=== PATIENT | female | born 1945 | race American Indian/Alaskan Native ===

== ENCOUNTER 2020-06-21 11:42 | Outpatient (REF) | payer MEDICARE, SELFPAY ==
[2020-06-21 14:24] LABS: Cholesterol 162 mg/dL; HDL Cholesterol 51 mg/dL; LDL Cholesterol Calculated 68 mg/dl; Triglycerides 219 mg/dL
[2020-06-21 14:35] LABS: Microalbum/Creatinine Ratio Ur 11.5 ug/mg cr
== END 2020-06-21 11:43 | disposition home or self-care (01) ==
LOC: HO.10HDL 11:42
PROVIDERS: Visit Provider Internal Medicine
DX: E11.9 Type 2 diabetes mellitus without complications (principal); I10 Essential (primary) hypertension
CPT/HCPCS: 36415; 80061; 82043

== ENCOUNTER 2020-12-24 11:40 | Outpatient (REF) | payer MEDICARE, SELFPAY ==
--- NOTE | ~2020-12-24 | MM_ITS ---
EXAMINATION: MM SCREENING DIGITAL BREAST TOMOSYNTHESIS, BILATERAL CLINICAL INFORMATION: Screening. Asymptomatic. The lifetime risk of breast cancer based on the Tyrer-Cuzick Model is 4.2%. COMPARISON: Mammography: August 08, 2018 and studies dating back to November 30, 2011 TECHNIQUE: Digital breast tomosynthesis is performed in both the craniocaudal and mediolateral oblique views along with computer-aided detection (CAD). Synthesized 2D images are generated from the tomosynthesis. FINDINGS: There are scattered areas of fibroglandular density (ACR BI-RADS breast composition Category b). There are no significant masses, abnormal calcifications, or other abnormalities. MM/MM tomosynthesis screening BI IMPRESSION: There are no significant changes from prior study. ASSESSMENT: BI-RADS 1: Negative RECOMMENDATION: Routine annual mammography screening. This patient's information was entered into a reminder system with a target due date for their next mammogram.
--- NOTE | ~2020-12-24 | MM_ITS ---
EXAMINATION: BONE DENSITOMETRY CLINICAL INDICATION: Asymptomatic menopausal state. COMPARISON: None (current study represents initial baseline exam). TECHNIQUE: Using a Opendisc DXA System (software version: 13.1) manufactured by [employer], dual-energy x-ray absorptiometry was performed of the spine and left hip. The images are of good technical quality. Summary results are attached. FINDINGS: AP SPINE L1-L3 (excluding L4): The data of L1-L4 has been changed to exclude the L4 vertebral body, because degenerative changes at this level may cause overestimation of lumbar spine density. BMD 1.318 g/cm2, Z-score 2.4, T-score 1.2, normal. LEFT FEMUR, NECK: BMD 0.833 g/cm2, Z-score 0.0, T-score -1.5, osteopenia. LEFT FEMUR, TOTAL: BMD 0.973 g/cm2, Z-score 0.9, T-score -0.3, normal. IDENTIFIED RISK FACTORS: Height loss, history of fracture (adult), menopause. HISTORY OF FRACTURE: Foot, clavicle. MEDICATIONS: Calcium supplements or multivitamin, vitamin D. MM/XR DEXA axial skeleton IMPRESSION: 1. DIAGNOSIS: Osteopenia based on the lowest T-score value of -1.5 in the femoral neck applying World Health Organization criteria. 2. 10-YEAR FRACTURE RISK PREDICTION, FRAX: Major osteoporotic fracture (clinical spine, forearm, hip or shoulder) 15.2%. Hip fracture 2.4%. 3. Treatment Recommendations: NOF guidelines recommend consideration for treatment in postmenopausal women and men age 50 and older presenting with the following: -A hip or vertebral (clinical or morphometric) fracture. -T-score less than or equal to -2.5 at the femoral neck or spine after appropriate evaluation to exclude secondary causes. -Low bone mass at the hip or spine and a 10-year fracture probability by FRAX of greater than or equal to 3% for hip fracture or greater than or equal to 20% for major osteoporotic fracture based on the [place] adapted WHO algorithm. 4. Other Recommendations: All treatment decisions require clinical judgment and consideration of individual patient factors, including patient preferences, comorbidities, previous drug use, risk factors not captured in the FRAX model (e.g. frailty, falls, vitamin D deficiency, increased bone turnover, interval significant decline in bone density) and possible under or overestimation of fracture risk by FRAX. Additional medical evaluation for secondary cause of low bone mineral density may be appropriate. FUTURE SCAN RECOMMENDATION: People with diagnosed cases of osteoporosis or at high risk for fracture should have regular bone mineral density tests. For patients eligible for Medicare, routine testing is allowed once every 2 years. The testing frequency can be increased to one year for patients who have rapidly progressing disease, those who are receiving or discontinuing medical therapy to restore bone mass, or have additional risk factors.
== END 2020-12-24 11:41 | disposition home or self-care (01) ==
LOC: HO.MAMMO 11:40
PROVIDERS: PCP Internal Medicine; Visit Provider Nurse Practitioner Family
DX: Z12.31 Encounter for screening mammogram for malignant neoplasm of breast (principal); Z13.820 Encounter for screening for osteoporosis; Z78.0 Asymptomatic menopausal state
CPT/HCPCS: 77063; 77067; 77080

== ENCOUNTER 2022-09-29 13:32 | Outpatient (AMB) | payer MEDICARE, SELFPAY ==
--- NOTE | 2022-09-29 13:34 | MHC.PC.OV ---
Vital Signs 09/29/22 13:37 Height 5 ft Weight 173 lb 4 oz BMI 33.8 BP 110/62 Blood Pressure Location Lt brachial Position Sitting Pulse 71 Pulse Source Pulse Oximeter Pulse Oximetry (%) 92 Oxygen Delivery Method Room Air Intake Visit Reasons: 3 month f/u Medications Intake Note: Patient is here to follow up on DM, HTN, COPD. 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: No Diesel Engine Engineer: Not Required per policy Accompanied by: Self / Same As Patient Allergies diphenhydramine [From Benadryl] Allergy (Unknown, Verified 09/29/22 13:37) redness Medication List - Last Reconciled 09/29/22 by Karl John MD albuterol sulfate 90 mcg/actuation (Ventolin HFA) 2 puffs inhalation Q4-6H PRN lisinopril 20 mg PO DAILY metformin 500 mg PO DAILY metoprolol succinate ER 50 mg PO BID simvastatin 20 mg PO BEDTIME Tobacco use date assessed: 09/29/22 Fall risk assessment: No Falls in past year Last assessed Fall Risk: 09/29/22 Dental Screening Dental Screen Date: 09/29/22 Did you have a dental visit in the last 12 months?: No Did you have a dental problem in the last 6 months where you did not have access to dental care?: No Was dental information given to patient?: No HPI 3 month f/u Medications HPI Details HTN on Rx; doing well; compliant [facility] Medical History (Updated 05/20/22 @ 14:04 by Karl John MD) Diabetes mellitus Hypertension Obesity Type 2 diabetes mellitus with obesity Surgical History History of ankle surgery History of appendectomy History of colonoscopy History of tonsillectomy and adenoidectomy History of tubal ligation Family History (Updated 09/29/22 @ 13:35 by MARYLOU Figueroa) Father Diabetes CHF (congestive heart failure) Pneumonia Mother Myocardial infarction Maternal Grandmother No problems noted. Paternal Grandmother Breast cancer Paternal Grandfather Cancer Social History Housing: House Alcohol intake: never Patient Tobacco Use Status: Former Tobacco user e-Cigarette/Vaping Use: Never Used Second Hand Smoke Exposure: No service: No Current occupational status: retired Cognitive needs: No Hearing needs: No Vision needs: Yes (glasses) Questionnaire Thrive Questionnaire Date Thrive assessed: 05/20/22 LATESHA-7 AMB Questionnaire LATESHA-7 Date LATESHA - 7 assessed: 05/20/22 Source: Developed by Drs. Chinmay Arguello, Flaca Burgos, Marco Valle and colleagues, with an educational ced from [employer]. Review of Systems Const Denies chills, Denies headache(s) and Denies weight loss ENT Denies headache(s) Card Denies chest pain, Denies syncope, Denies irregular heart rhythm and Denies dyspnea Resp Denies chest congestion, Denies cough and Denies dyspnea GI Denies abdominal pain, Denies change in stool character, Denies nausea and Denies vomiting Musc Denies deformity and Denies joint swelling Neuro Denies syncope and Denies headache(s) Physical exam (Primary Care) Vital Signs: Last Vital Signs Pulse 71 09/29/22 13:37 BP 110/62 09/29/22 13:37 Pulse Ox 92 09/29/22 13:37 Oxygen Delivery Method Room Air 09/29/22 13:37 BMI result Body Mass Index 33.8 Tobacco/Smoking Status: Tobacco use Status Tobacco use date assessed 09/29/22 09/29/22 13:44 Patient Tobacco Use Status Former Tobacco user 09/29/22 13:35 e-Cigarette/Vaping Use Never Used 09/29/22 13:35 Thrive Assessment: Date of Thrive Assessment Date Thrive assessed 05/20/22 09/29/22 13:35 Results AMB Hemoglobin A1c AMB Hemoglobin A1c 7.0 % Last Edit by MARYLOU Figueroa on 09/29/22 13:52 Results Reviewed Results Reviewed: Laboratory Last Values Hgb A1c (Clinic) 7.0 % (4.0-6.0) H 09/29/22 13:36 Assessment and Plan Assessment & Plan Orders: Orders AMB Hemoglobin A1c Today E11.69 - Type 2 diabetes mellitus with other specified complication, E66.9 - Obesity, unspecified Coding Level of Care Code Est Pt Level 3 (38643) Diagnoses
[2022-09-29 13:37] VITALS: BP 110/62; PULSE 71; O2SAT 92; BMI 33.8
== END 2022-09-29 14:05 | disposition home or self-care (01) ==
PROVIDERS: PCP Internal Medicine; Visit Provider Internal Medicine
DX: E11.69 Type 2 diabetes mellitus with other specified complication (principal); E66.9 Obesity, unspecified; Z68.33 Body mass index [BMI] 33.0-33.9, adult
CPT/HCPCS: 83036; 99213

== ENCOUNTER 2023-01-19 14:12 | Outpatient (AMB) | payer MEDICARE, SELFPAY ==
[2023-01-19 14:14] VITALS: BP 140/80; PULSE 70; O2SAT 98; BMI 34.2
--- NOTE | 2023-01-19 14:14 | MHC.PC.OV ---
Vital Signs 01/19/23 14:14 Height 5 ft Weight 175 lb BMI 34.2 BP 140/80 H Blood Pressure Location Lt brachial Position Sitting Pulse 70 Pulse Source Pulse Oximeter Pulse Oximetry (%) 98 Oxygen Delivery Method Room Air Intake Visit Reasons: 3 month f/u Racing Secretary And Handicapper Required: No Creative Engagement Director: Not Required per policy Accompanied by: Self / Same As Patient Allergies diphenhydramine [From Benadryl] Allergy (Unknown, Verified 01/19/23 14:14) redness Medication List - Last Reconciled 01/20/23 by Karl John MD albuterol sulfate 90 mcg/actuation (Ventolin HFA) 2 puffs inhalation Q4-6H PRN lisinopril 20 mg PO DAILY metformin 500 mg PO DAILY metoprolol tartrate 25 mg PO BID simvastatin 20 mg PO BEDTIME Tobacco use date assessed: 09/29/22 Fall risk assessment: No Falls in past year Last assessed Fall Risk: 01/19/23 Dental Screening Dental Screen Date: 01/19/23 Did you have a dental visit in the last 12 months?: No Did you have a dental problem in the last 6 months where you did not have access to dental care?: No Was dental information given to patient?: Patient has dentist HPI 3 month f/u HPI Details HTN DM and hyperlip; doing well and BS in control [facility] Medical History Obesity Type 2 diabetes mellitus with obesity Diabetes mellitus Hypertension Surgical History History of colonoscopy History of ankle surgery History of tonsillectomy and adenoidectomy History of appendectomy History of tubal ligation Family History Father Diabetes CHF (congestive heart failure) Pneumonia Mother Myocardial infarction Maternal Grandmother No problems noted. Paternal Grandmother Breast cancer Paternal Grandfather Cancer Social History Housing: House Alcohol intake: never Patient Tobacco Use Status: Former Tobacco user e-Cigarette/Vaping Use: Never Used Second Hand Smoke Exposure: No service: No Current occupational status: retired Cognitive needs: No Hearing needs: No Vision needs: Yes (glasses) Questionnaire PHQ-9 Over the last 2 weeks, how often have you been bothered by any of the following problems? 1. Little interest or pleasure in doing things: not at all 2. Feeling down, depressed, or hopeless: not at all 3. Trouble falling or staying asleep, or sleeping too much: not at all 4. Feeling tired or having little energy: not at all 5. Poor appetite or overeating: not at all 6. Feeling bad about yourself - or that you are a failure or have let yourself or your family down: not at all 7. Trouble concentrating on things, such as reading the newspaper or watching television: not at all 8. Moving or speaking so slowly that other people could have noticed. Or the opposite - being so fidgety or restless that you have been moving around a lot more than usual: not at all 9. Thoughts that you would be better off or of hurting yourself in some way: not at all Total score: 0 Depression Screening Interpretation: Negative Depression Screening Done: Yes 77588 - PHQ-9 Billing: Yes Source: Developed by Drs. Chinmay Arguello, Flaca Burgos, Marco Valle and colleagues, with an educational ced from [employer]. Thrive Questionnaire Date Thrive assessed: 05/20/22 AUDIT C Alcohol Use Questionnaire (AUDIT-C) 1. How often do you have a drink containing alcohol?: Never 3. How often do you have six or more drinks on one occasion?: Never Total Score: 0 Score Reviewed/Action Taken: No LATESHA-7 AMB Questionnaire LATESHA-7 Date LATESHA - 7 assessed: 05/20/22 Source: Developed by Drs. Chinmay Arguello, Marco Francis and colleagues, with an educational ced from [employer]. Review of Systems Const Denies chills, Denies headache(s) and Denies weight loss ENT Denies headache(s) Card Denies chest pain, Denies syncope, Denies irregular heart rhythm and Denies dyspnea Resp Denies chest congestion, Denies cough and Denies dyspnea GI Denies abdominal pain, Denies change in stool character, Denies nausea and Denies vomiting Musc Denies deformity and Denies joint swelling Neuro Denies syncope and Denies headache(s) Physical exam (Primary Care) Vital Signs: Last Vital Signs Pulse 70 01/19/23 14:14 BP 140/80 H 01/19/23 14:14 Pulse Ox 98 01/19/23 14:14 Oxygen Delivery Method Room Air 01/19/23 14:14 BMI result Body Mass Index 34.2 Tobacco/Smoking Status: Tobacco use Status Tobacco use date assessed 09/29/22 01/19/23 14:15 Patient Tobacco Use Status Former Tobacco user 01/19/23 14:15 e-Cigarette/Vaping Use Never Used 01/19/23 14:15 PHQ-9: PHQ-9 Score PHQ-9: Total score 0 01/19/23 14:23 Depression Screening Interpretation: Negative Thrive Assessment: Date of Thrive Assessment Date Thrive assessed 05/20/22 01/19/23 14:15 Const General: cooperative, comfortable, no acute distress and alert Neck Neck: Yes no lymphadenopathy Thyroid: Thyroid normal Resp Effort & Inspection: normal respiratory effort Auscultation: clear to auscultation bilaterally Percussion: percussion normal Cardio Jugular venous distension: no JVD Palpation: normal PMI Rate: regular rate Rhythm: regular rhythm Heart sounds: S1 normal heart sound present and S2 normal heart sound present GI Inspection: Yes normal to inspection Palpation (GI): No hepatosplenomegaly present Skin General skin exam: no rashes or lesions noted Extrem General: Yes no clubbing, cyanosis or edema Assessment and Plan Assessment & Plan (1) Type 2 diabetes mellitus with obesity: Code(s): E11.69 - Type 2 diabetes mellitus with other specified complication; E66.9 - Obesity, unspecified Plan: stable; same rx (2) Hypertension: Code(s): I10 - Essential (primary) hypertension Plan: stabe; same rx Orders: Orders Comprehensive [place]. Panel Fast 01/19/23 N28.9 - Disorder of kidney and ureter, unspecified Complete Blood Count Auto Diff 01/19/23 D64.9 - Anemia, unspecified Thyroid Stimulating Hormone 01/19/23 E03.9 - Hypothyroidism, unspecified Hemoglobin A1c 01/19/23 R73.9 - Hyperglycemia, unspecified Lipid Panel 01/19/23 E78.5 - Hyperlipidemia, unspecified Microalbumin, Random (w Creat) 01/19/23 E11.69 - Type 2 diabetes mellitus with other specified complication, E66.01 - Morbid (severe) obesity due to excess calories Coding Level of Care Code Est Pt Level 4 (22507) Diagnoses Type 2 diabetes mellitus with obesity E11.69; E66.9 Hypertension I10
== END 2023-01-19 14:35 | disposition home or self-care (01) ==
PROVIDERS: PCP Internal Medicine; Visit Provider Internal Medicine
DX: E11.69 Type 2 diabetes mellitus with other specified complication (principal); E66.9 Obesity, unspecified; I10 Essential (primary) hypertension; Z68.34 Body mass index [BMI] 34.0-34.9, adult
CPT/HCPCS: 99214

== ENCOUNTER 2023-04-26 13:19 | Outpatient (AMB) | payer MEDICARE, SELFPAY ==
[2023-04-26 13:21] VITALS: BP 144/80; PULSE 90; O2SAT 98; BMI 34.6
--- NOTE | 2023-04-26 13:21 | MHC.PC.OV ---
Vital Signs 04/26/23 13:21 Height 5 ft Weight 177 lb BMI 34.6 BP 144/80 H Blood Pressure Location Lt brachial Position Sitting Pulse 90 Pulse Source Pulse Oximeter Pulse Oximetry (%) 98 Oxygen Delivery Method Room Air Intake Visit Reasons: follow up Finance Lecturer Required: No Mortgage Protection Specialist: Not Required per policy Accompanied by: Self / Same As Patient Allergies diphenhydramine [From Benadryl] Allergy (Unknown, Verified 04/26/23 13:22) redness Medication List - Last Reconciled 04/27/23 by Karl John MD albuterol sulfate 90 mcg/actuation (Ventolin HFA) 2 puffs inhalation Q4-6H PRN lisinopril 20 mg PO DAILY metformin 500 mg PO DAILY metoprolol tartrate 25 mg PO BID simvastatin 20 mg PO BEDTIME Tobacco use date assessed: 04/26/23 Fall risk assessment: No Falls in past year Last assessed Fall Risk: 04/26/23 Dental Screening Dental Screen Date: 04/26/23 Did you have a dental visit in the last 12 months?: No Did you have a dental problem in the last 6 months where you did not have access to dental care?: No Was dental information given to patient?: Patient has dentist HPI follow up HPI Details HTN DM and hyperlip on rx; doing well and compliant [facility] Medical History Obesity Type 2 diabetes mellitus with obesity Diabetes mellitus Hypertension Surgical History History of colonoscopy History of ankle surgery History of tonsillectomy and adenoidectomy History of appendectomy History of tubal ligation Family History Father Diabetes CHF (congestive heart failure) Pneumonia Mother Myocardial infarction Maternal Grandmother No problems noted. Paternal Grandmother Breast cancer Paternal Grandfather Cancer Social History Housing: House Alcohol intake: never Patient Tobacco Use Status: Former Tobacco user e-Cigarette/Vaping Use: Never Used Second Hand Smoke Exposure: No service: No Current occupational status: retired Cognitive needs: No Hearing needs: No Vision needs: Yes (glasses) Questionnaire PHQ-9 Over the last 2 weeks, how often have you been bothered by any of the following problems? 1. Little interest or pleasure in doing things: not at all 2. Feeling down, depressed, or hopeless: not at all 3. Trouble falling or staying asleep, or sleeping too much: not at all 4. Feeling tired or having little energy: not at all 5. Poor appetite or overeating: not at all 6. Feeling bad about yourself - or that you are a failure or have let yourself or your family down: not at all 7. Trouble concentrating on things, such as reading the newspaper or watching television: not at all 8. Moving or speaking so slowly that other people could have noticed. Or the opposite - being so fidgety or restless that you have been moving around a lot more than usual: not at all 9. Thoughts that you would be better off or of hurting yourself in some way: not at all Total score: 0 Depression Screening Interpretation: Negative Depression Screening Done: Yes 55677 - PHQ-9 Billing: Yes Source: Developed by Drs. Chinmay Arguello, Flaca Burgos, Marco Valle and colleagues, with an educational ced from [employer]. Thrive Questionnaire Date Thrive assessed: 04/26/23 I am a: Patient What is your living situation today?: I have a steady place to live Within the past 12 months, did the food you bought not last and you didn't have the money to get more?: Never true Within the past 12 months, did you worry whether your food would run out before you got money to buy more?: Never true Do you have trouble paying for medicines?: No Do you have trouble getting transportation to medical appointments?: No Do you have trouble paying your heating and electricity bill?: No Do you have trouble taking care of your child, family member or friend?: No Do you have trouble with day-to-day activities such as bathing, preparing meals, shopping, managing finances, etc.?: No Are you currently unemployed and looking for a job?: No Are you interested in more education?: No Please select the resources that you would like help with: None THRIVE Score: 0 AUDIT C Alcohol Use Questionnaire (AUDIT-C) 1. How often do you have a drink containing alcohol?: Never 3. How often do you have six or more drinks on one occasion?: Never Total Score: 0 Score Reviewed/Action Taken: No LATESHA-7 AMB Questionnaire LATESHA-7 Date LATESHA - 7 assessed: 04/26/23 Feeling nervous, anxious, or on edge: 0 = Not at all Not being able to stop or control worryin = Not at all Worrying too much about different things: 0 = Not at all Trouble relaxin = Not at all Being so restless that it is hard to sit still: 0 = Not at all Becoming easily annoyed or irritable: 0 = Not at all Feeling afraid as if something awful might happen: 0 = Not at all Total LATESHA-7 score (0-4 normal; 5-9 mild; 10-14 moderate; 15-21 severe): 0 Source: Developed by Drs. Chinmay Arguello, Flaca Burgos, Marco Valle and colleagues, with an educational ced from [employer]. LATESHA-7 Assessment Billing LATESHA-7 Assessment Tool: LATESHA-7 Assessment 01302 Review of Systems Const Denies chills, Denies headache(s) and Denies weight loss ENT Denies headache(s) Card Denies chest pain, Denies syncope, Denies irregular heart rhythm and Denies dyspnea Resp Denies chest congestion, Denies cough and Denies dyspnea GI Denies abdominal pain, Denies change in stool character, Denies nausea and Denies vomiting Musc Denies deformity and Denies joint swelling Neuro Denies syncope and Denies headache(s) Physical exam (Primary Care) Vital Signs: Last Vital Signs Pulse 90 04/26/23 13:21 BP 144/80 H 04/26/23 13:21 Pulse Ox 98 04/26/23 13:21 Oxygen Delivery Method Room Air 04/26/23 13:21 BMI result Body Mass Index 34.6 Tobacco/Smoking Status: Tobacco use Status Tobacco use date assessed 04/26/23 04/26/23 13:24 Patient Tobacco Use Status Former Tobacco user 04/26/23 13:24 e-Cigarette/Vaping Use Never Used 04/26/23 13:24 PHQ-9: PHQ-9 Score PHQ-9: Total score 0 04/26/23 13:55 Depression Screening Interpretation: Negative Thrive Assessment: Date of Thrive Assessment Date Thrive assessed 04/26/23 04/26/23 13:24 Const General: cooperative, comfortable, no acute distress and alert Neck Neck: Yes no lymphadenopathy Thyroid: Thyroid normal Resp Effort & Inspection: normal respiratory effort Auscultation: clear to auscultation bilaterally Percussion: percussion normal Cardio Jugular venous distension: no JVD Palpation: normal PMI Rate: regular rate Rhythm: regular rhythm Heart sounds: S1 normal heart sound present and S2 normal heart sound present GI Inspection: Yes normal to inspection Palpation (GI): No hepatosplenomegaly present Skin General skin exam: no rashes or lesions noted Extrem General: Yes no clubbing, cyanosis or edema Results AMB Hemoglobin A1c AMB Hemoglobin A1c 8.0 % Last Edit by MARYLOU Kendall on 04/26/23 13:55 Results Reviewed Results Reviewed: Laboratory Last Values Hgb A1c (Clinic) 8.0 % (4.0-6.0) H 04/26/23 13:24 Assessment and Plan Assessment & Plan (1) Type 2 diabetes mellitus with obesity: Code(s): E11.69 - Type 2 diabetes mellitus with other specified complication; E66.9 - Obesity, unspecified Plan: stable; same rx (2) Hypertension: Code(s): I10 - Essential (primary) hypertension Plan: stable; same rx (3) Hyperlipidemia: Code(s): E78.5 - Hyperlipidemia, unspecified Plan: stable; same rx Orders: Orders Complete Blood Count Auto Diff Today D64.9 - Anemia, unspecified AMB Hemoglobin A1c 04/26/23 E11.69 - Type 2 diabetes mellitus with other specified complication, E66.9 - Obesity, unspecified Comprehensive [place]. Panel Fast Today N28.9 - Disorder of kidney and ureter, unspecified Microalbumin, Random (w Creat) Today E11.69 - Type 2 diabetes mellitus with other specified complication, E66.01 - Morbid (severe) obesity due to excess calories Hemoglobin A1c Today R73.9 - Hyperglycemia, unspecified Thyroid Stimulating Hormone Today E03.9 - Hypothyroidism, unspecified Coding Level of Care Code Est Pt Level 4 (55056) Diagnoses Type 2 diabetes mellitus with obesity E11.69; E66.9 Hypertension I10 Hyperlipidemia E78.5 Additional Codes LATESHA-7 Assessment Billing - LATESHA-7 Assessment Tool: LATESHA-7 Assessment 40450 ([id number])
== END 2023-04-26 13:59 | disposition home or self-care (01) ==
PROVIDERS: PCP Internal Medicine; Visit Provider Internal Medicine
DX: E11.69 Type 2 diabetes mellitus with other specified complication (principal)
CPT/HCPCS: 83036; 99214

== ENCOUNTER 2023-07-28 13:24 | Outpatient (AMB) | payer MEDICARE, SELFPAY ==
[2023-07-28 13:26] VITALS: BP 112/78; PULSE 64; O2SAT 97; BMI 34.4
--- NOTE | 2023-07-28 13:26 | A.OFFPC_ITS ---
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 Required: No Allergies diphenhydramine [From Benadryl] Allergy (Unknown, Verified 07/28/23 13:26) redness Medication List - Last Reconciled 07/29/23 by Karl John MD albuterol sulfate 90 mcg/actuation (Ventolin HFA) 2 puffs inhalation Q4-6H PRN lisinopril 20 mg PO DAILY metformin 500 mg PO DAILY metoprolol succinate ER 50 mg PO BID simvastatin 20 mg PO BEDTIME Tobacco use date assessed: 07/28/23 Fall risk assessment: No Falls in past year Last assessed Fall Risk: 07/28/23 Dental Screening Dental Screen Date: 04/26/23 HPI 3mth f/u HPI Details htn on rx; doing well and compliant with rx PFSH Medical History Obesity Type 2 diabetes mellitus with obesity Diabetes mellitus Hypertension Surgical History History of colonoscopy History of ankle surgery History of tonsillectomy and adenoidectomy History of appendectomy History of tubal ligation Family History Father Diabetes CHF (congestive heart failure) Pneumonia Mother Myocardial infarction Maternal Grandmother No problems noted. Paternal Grandmother Breast cancer Paternal Grandfather Cancer Social History Housing: House Alcohol intake: never Patient Tobacco Use Status: Former Tobacco user e-Cigarette/Vaping Use: Never Used Second Hand Smoke Exposure: No service: No Current occupational status: retired Cognitive needs: No Hearing needs: No Vision needs: Yes (glasses) Questionnaire Thrive Questionnaire Date Thrive assessed: 04/26/23 AUDIT C Alcohol Use Questionnaire (AUDIT-C) 1. How often do you have a drink containing alcohol?: Never 3. How often do you have six or more drinks on one occasion?: Never Total Score: 0 Score Reviewed/Action Taken: No LATESHA-7 AMB Questionnaire LATESHA-7 Date LATESHA - 7 assessed: 04/26/23 Source: Developed by Drs. Chinmay Arguello, Flaca Burgos, Marco Valle and colleagues, with an educational ced from [employer]. Review of Systems Const Denies chills, Denies headache(s) and Denies weight loss ENT Denies headache(s) Card Denies chest pain, Denies syncope, Denies irregular heart rhythm and Denies dyspnea Resp Denies chest congestion, Denies cough and Denies dyspnea GI Denies abdominal pain, Denies change in stool character, Denies nausea and Denies vomiting Musc Denies deformity and Denies joint swelling Neuro Denies syncope and Denies headache(s) Physical exam (Primary Care) Vital Signs: Last Vital Signs Pulse 64 07/28/23 13:26 BP 112/78 07/28/23 13:26 Pulse Ox 97 07/28/23 13:26 Oxygen Delivery Method Room Air 07/28/23 13:26 BMI result Body Mass Index 34.4 Tobacco/Smoking Status: Tobacco use Status Tobacco use date assessed 07/28/23 07/28/23 13:32 Patient Tobacco Use Status Former Tobacco user 07/28/23 13:32 e-Cigarette/Vaping Use Never Used 07/28/23 13:32 Thrive Assessment: Date of Thrive Assessment Date Thrive assessed 04/26/23 07/28/23 13:32 Const General: cooperative, comfortable, no acute distress and alert Neck Neck: Yes no lymphadenopathy Thyroid: Thyroid normal Resp Effort & Inspection: normal respiratory effort Auscultation: clear to auscultation bilaterally Percussion: percussion normal Cardio Jugular venous distension: no JVD Palpation: normal PMI Rate: regular rate Rhythm: regular rhythm Heart sounds: S1 normal heart sound present and S2 normal heart sound present GI Inspection: Yes normal to inspection Palpation (GI): No hepatosplenomegaly present Skin General skin exam: no rashes or lesions noted Extrem General: Yes no clubbing, cyanosis or edema Results AMB Hemoglobin A1c AMB Hemoglobin A1c 8.0 % Last Edit by MARYLOU Monroe on 07/28/23 13:36 Results Reviewed Results Reviewed: Laboratory Last Values Hgb A1c (Clinic) 8.0 % (4.0-6.0) H 07/28/23 13:36 Assessment and Plan Assessment & Plan (1) Hypertension: Code(s): I10 - Essential (primary) hypertension Plan: stable; same rx Orders: Orders Complete Blood Count Auto Diff Today Z13.0 - Encounter for screening for diseases of the blood and blood-forming organs and certain disorders involving the immune mechanism Comprehensive [place]. Panel Fast Today Z13.9 - Encounter for screening, unspecified Microalbumin, Random (w Creat) Today E11.69 - Type 2 diabetes mellitus with other specified complication, E66.01 - Morbid (severe) obesity due to excess calories Hemoglobin A1c Today R73.9 - Hyperglycemia, unspecified AMB Hemoglobin A1c 07/28/23 E11.9 - Type 2 diabetes mellitus without complications Lipid Panel Today Z13.220 - Encounter for screening for lipoid disorders Coding Level of Care Code Est Pt Level 3 (69981) Diagnoses Hypertension I10
== END 2023-07-28 13:55 | disposition home or self-care (01) ==
PROVIDERS: PCP Internal Medicine; Visit Provider Internal Medicine
DX: E11.9 Type 2 diabetes mellitus without complications (principal)
CPT/HCPCS: 83036; 99213

== ENCOUNTER 2023-11-09 13:14 | Outpatient (AMB) | payer MEDICARE, SELFPAY ==
[2023-11-09 13:18] VITALS: PULSE 73; O2SAT 96; BMI 34.4
--- NOTE | 2023-11-09 13:18 | A.OFFPC_ITS ---
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 Accompanied by: Self / Same As Patient Allergies diphenhydramine [From Benadryl] Allergy (Unknown, Verified 11/09/23 13:21) redness Medication List - Last Reconciled 11/09/23 by Karl John MD albuterol sulfate 90 mcg/actuation (Ventolin HFA) 2 puffs inhalation Q4-6H PRN lisinopril 20 mg PO DAILY metformin 500 mg PO DAILY metoprolol tartrate 25 mg PO BID simvastatin 20 mg PO BEDTIME Tobacco use date assessed: 07/28/23 Fall risk assessment: No Falls in past year Last assessed Fall Risk: 11/09/23 Dental Screening Dental Screen Date: 04/26/23 HPI 3 Month F/U HPI Details HTN on Rx; compliant [facility] Medical History Obesity Type 2 diabetes mellitus with obesity Diabetes mellitus Hypertension Surgical History History of colonoscopy History of ankle surgery History of tonsillectomy and adenoidectomy History of appendectomy History of tubal ligation Family History Father Diabetes CHF (congestive heart failure) Pneumonia Mother Myocardial infarction Maternal Grandmother No problems noted. Paternal Grandmother Breast cancer Paternal Grandfather Cancer Social History Housing: House Alcohol intake: never Patient Tobacco Use Status: Former Tobacco user Tobacco use type: Cigarette e-Cigarette/Vaping Use: Never Used Second Hand Smoke Exposure: No service: No Current occupational status: retired Cognitive needs: No Hearing needs: No Vision needs: Yes (glasses) Questionnaire PHQ-9 Over the last 2 weeks, how often have you been bothered by any of the following problems? 1. Little interest or pleasure in doing things: not at all 2. Feeling down, depressed, or hopeless: not at all 3. Trouble falling or staying asleep, or sleeping too much: not at all 4. Feeling tired or having little energy: not at all 5. Poor appetite or overeating: not at all 6. Feeling bad about yourself - or that you are a failure or have let yourself or your family down: not at all 7. Trouble concentrating on things, such as reading the newspaper or watching television: not at all 8. Moving or speaking so slowly that other people could have noticed. Or the opposite - being so fidgety or restless that you have been moving around a lot more than usual: not at all 9. Thoughts that you would be better off or of hurting yourself in some way: not at all Total score: 0 Depression Screening Interpretation: Negative Depression Screening Done: Yes 14893 - PHQ-9 Billing: Yes Source: Developed by Drs. Chinmay Arguello, Flaca Burgos, Marco Valle and colleagues, with an educational ced from [employer]. Thrive Questionnaire Date Thrive assessed: 04/26/23 Are you currently unemployed and looking for a job?: No AUDIT C Alcohol Use Questionnaire (AUDIT-C) 1. How often do you have a drink containing alcohol?: Never 3. How often do you have six or more drinks on one occasion?: Never Total Score: 0 Score Reviewed/Action Taken: No LATESHA-7 AMB Questionnaire LATESHA-7 Date LATESHA - 7 assessed: 04/26/23 Source: Developed by Drs. Chinmay Arguello, Flaca Burgos, Marco Valle and colleagues, with an educational ced from [employer]. Review of Systems Const Denies chills, Denies headache(s) and Denies weight loss ENT Denies headache(s) Card Denies chest pain, Denies syncope, Denies irregular heart rhythm and Denies dyspnea Resp Denies chest congestion, Denies cough and Denies dyspnea GI Denies abdominal pain, Denies change in stool character, Denies nausea and Denies vomiting Musc Denies deformity and Denies joint swelling Neuro Denies syncope and Denies headache(s) Physical exam (Primary Care) Vital Signs: Last Vital Signs Pulse 73 11/09/23 13:18 Pulse Ox 96 11/09/23 13:18 Oxygen Delivery Method Room Air 11/09/23 13:18 BMI result Body Mass Index 34.4 Tobacco/Smoking Status: Tobacco use Status Tobacco use date assessed 07/28/23 11/09/23 13:22 Patient Tobacco Use Status Former Tobacco user 11/09/23 13:22 Tobacco use type Cigarette 11/09/23 13:29 e-Cigarette/Vaping Use Never Used 11/09/23 13:22 PHQ-9: PHQ-9 Score PHQ-9: Total score 0 11/09/23 13:29 Depression Screening Interpretation: Negative Thrive Assessment: Date of Thrive Assessment Date Thrive assessed 04/26/23 11/09/23 13:22 Const General: cooperative, comfortable, no acute distress and alert Neck Neck: Yes no lymphadenopathy Thyroid: Thyroid normal Resp Effort & Inspection: normal respiratory effort Auscultation: clear to auscultation bilaterally Percussion: percussion normal Cardio Jugular venous distension: no JVD Palpation: normal PMI Rate: regular rate Rhythm: regular rhythm Heart sounds: S1 normal heart sound present and S2 normal heart sound present GI Inspection: Yes normal to inspection Palpation (GI): No hepatosplenomegaly present Skin General skin exam: no rashes or lesions noted Extrem General: Yes no clubbing, cyanosis or edema Results AMB Hemoglobin A1c AMB Hemoglobin A1c 7.6 % Last Edit by Trinh Aranda CMA on 11/09/23 13:29 Results Reviewed Results Reviewed: Laboratory Last Values Hgb A1c (Clinic) 7.6 % (4.0-6.0) H 11/09/23 13:29 Assessment and Plan Assessment & Plan (1) Hypertension: Code(s): I10 - Essential (primary) hypertension Plan: stable; same rx Orders: Orders AMB Hemoglobin A1c Today E11.69 - Type 2 diabetes mellitus with other specified complication, E66.9 - Obesity, unspecified Coding Level of Care Code Est Pt Level 3 (79072) Diagnoses Hypertension I10
== END 2023-11-09 14:07 | disposition home or self-care (01) ==
PROVIDERS: PCP Internal Medicine; Visit Provider Internal Medicine
DX: E11.69 Type 2 diabetes mellitus with other specified complication (principal); E66.9 Obesity, unspecified; I10 Essential (primary) hypertension; Z68.34 Body mass index [BMI] 34.0-34.9, adult

== ENCOUNTER → 2023-11-09 13:14 | Outpatient (BNVA) | payer MEDICARE, SELFPAY | PROVIDERS: PCP Internal Medicine; Visit Provider Internal Medicine | DX: I10 Essential (primary) hypertension (principal); E11.9 Type 2 diabetes mellitus without complications | CPT/HCPCS: 83036; 96127; 99212 ==

== ENCOUNTER 2024-02-11 13:11 | Outpatient (AMB) | payer MEDICARE, SELFPAY ==
--- NOTE | 2024-02-11 13:14 | MHC.PC.OV ---
Vital Signs 02/11/24 13:16 Height 5 ft Weight 179 lb 4 oz BMI 35.0 BP 130/80 Blood Pressure Location Lt brachial Position Sitting Pulse 82 Pulse Source Pulse Oximeter Pulse Oximetry (%) 94 Oxygen Delivery Method Room Air Intake Visit Reasons: 4 Months f/u Intake Note: Patient is here to follow up on DM, HLD, HTN. Public Address System Installer Required: No [place] Machine Operator: Not Required per policy Accompanied by: Self / Same As Patient Allergies diphenhydramine [From Benadryl] Allergy (Unknown, Verified 02/11/24 13:15) redness Medication List - Last Reconciled 02/14/24 by Karl John MD albuterol sulfate 90 mcg/actuation (Ventolin HFA) 2 puffs inhalation Q4-6H PRN lisinopril 20 mg PO DAILY metformin 500 mg PO DAILY metoprolol tartrate 50 mg PO BID simvastatin 20 mg PO BEDTIME Tobacco use date assessed: 02/11/24 Fall risk assessment: No Falls in past year Last assessed Fall Risk: 02/11/24 Dental Screening Dental Screen Date: 04/26/23 HPI 4 Months f/u HPI Details diabetes stable; compliant [facility] Medical History Obesity Type 2 diabetes mellitus with obesity Diabetes mellitus Hypertension Surgical History History of colonoscopy History of ankle surgery History of tonsillectomy and adenoidectomy History of appendectomy History of tubal ligation Family History Father Diabetes CHF (congestive heart failure) Pneumonia Mother Myocardial infarction Maternal Grandmother No problems noted. Paternal Grandmother Breast cancer Paternal Grandfather Cancer Social History Housing: House Alcohol intake: never Patient Tobacco Use Status: Former Tobacco user Tobacco use type: Cigarette e-Cigarette/Vaping Use: Never Used Second Hand Smoke Exposure: Yes service: No Current occupational status: retired Cognitive needs: No Hearing needs: No Vision needs: Yes (glasses) Questionnaire Thrive Questionnaire Date Thrive assessed: 04/26/23 Are you currently unemployed and looking for a job?: No AUDIT C Alcohol Use Questionnaire (AUDIT-C) 3. How often do you have six or more drinks on one occasion?: Never Total Score: 0 LATESHA-7 AMB Questionnaire LATESHA-7 Date LATESHA - 7 assessed: 04/26/23 Source: Developed by Drs. Chinmay Arguello, Flaca Burgos, Marco Valle and colleagues, with an educational ced from [employer]. Review of Systems Const Denies chills, Denies headache(s) and Denies weight loss ENT Denies headache(s) Card Denies chest pain, Denies syncope, Denies irregular heart rhythm and Denies dyspnea Resp Denies chest congestion, Denies cough and Denies dyspnea GI Denies abdominal pain, Denies change in stool character, Denies nausea and Denies vomiting Musc Denies deformity and Denies joint swelling Neuro Denies syncope and Denies headache(s) Physical exam (Primary Care) Vital Signs: Last Vital Signs Pulse 82 02/11/24 13:16 BP 130/80 02/11/24 13:16 Pulse Ox 94 02/11/24 13:16 Oxygen Delivery Method Room Air 02/11/24 13:16 BMI result Body Mass Index 35.0 Tobacco/Smoking Status: Tobacco use Status Tobacco use date assessed 02/11/24 02/11/24 13:24 Patient Tobacco Use Status Former Tobacco user 02/11/24 13:24 Tobacco use type Cigarette 02/11/24 13:24 e-Cigarette/Vaping Use Never Used 02/11/24 13:24 Thrive Assessment: Date of Thrive Assessment Date Thrive assessed 04/26/23 02/11/24 13:24 Const General: cooperative, comfortable, no acute distress and alert Neck Neck: Yes no lymphadenopathy Thyroid: Thyroid normal Resp Effort & Inspection: normal respiratory effort Auscultation: clear to auscultation bilaterally Percussion: percussion normal Cardio Jugular venous distension: no JVD Palpation: normal PMI Rate: regular rate Rhythm: regular rhythm Heart sounds: S1 normal heart sound present and S2 normal heart sound present GI Inspection: Yes normal to inspection Palpation (GI): No hepatosplenomegaly present Skin General skin exam: no rashes or lesions noted Extrem General: Yes no clubbing, cyanosis or edema Results AMB Hemoglobin A1c AMB Hemoglobin A1c 7.9 % Last Edit by MARYLOU Figueroa on 02/11/24 13:29 Results Reviewed Results Reviewed: Laboratory Last Values Hgb A1c (Clinic) 7.9 % (4.0-6.0) H 02/11/24 13:14 Coding Level of Care Code Est Pt Level 3 (37964) Diagnoses Type 2 diabetes mellitus with obesity E11.69; E66.9 Assessment & Plan Assessment & Plan (1) Type 2 diabetes mellitus with obesity: Code(s): E11.69 - Type 2 diabetes mellitus with other specified complication; E66.9 - Obesity, unspecified Category: Medical Plan: stabkle; same rx Orders: Orders AMB Hemoglobin A1c 02/11/24 E11.69 - Type 2 diabetes mellitus with other specified complication, E66.9 - Obesity, unspecified
[2024-02-11 13:16] VITALS: BP 130/80; PULSE 82; O2SAT 94; BMI 35.0
== END 2024-02-11 13:49 | disposition home or self-care (01) ==
PROVIDERS: PCP Internal Medicine; Visit Provider Internal Medicine
DX: E11.69 Type 2 diabetes mellitus with other specified complication (principal); E66.9 Obesity, unspecified; Z68.35 Body mass index [BMI] 35.0-35.9, adult

== ENCOUNTER → 2024-02-11 13:11 | Outpatient (BNVA) | payer MEDICARE, SELFPAY | PROVIDERS: PCP Internal Medicine; Visit Provider Internal Medicine | DX: E11.69 Type 2 diabetes mellitus with other specified complication (principal); E66.9 Obesity, unspecified; Z68.35 Body mass index [BMI] 35.0-35.9, adult; Z71.3 Dietary counseling and surveillance | CPT/HCPCS: 83036; 99212 ==

== ENCOUNTER 2024-04-28 13:19 | Outpatient (AMB) | payer MEDICARE, SELFPAY ==
--- NOTE | 2024-04-28 13:21 | MHC.PC.OV ---
Vital Signs 04/28/24 13:22 Height 5 ft Weight 175 lb BMI 34.2 BP 110/64 Blood Pressure Location Lt brachial Position Sitting Pulse 85 Pulse Source Pulse Oximeter Temp 97.3 F Temp Source Temporal Artery Scan Pulse Oximetry (%) 96 Oxygen Delivery Method Room Air Intake Visit Reasons: 3 month f/u Intake Note: Patient is here to follow up on DM, HLD, COPD, HTN. Pbx Repairer Required: No Injection Specialist: Not Required per policy Accompanied by: Self / Same As Patient Allergies diphenhydramine [From Benadryl] Allergy (Unknown, Verified 04/28/24 13:22) redness Medication List - Last Reconciled 04/28/24 by Karl oJhn MD albuterol sulfate 90 mcg/actuation (Ventolin HFA) 2 puffs inhalation Q4-6H PRN lisinopril 20 mg PO DAILY metformin 500 mg PO DAILY metoprolol tartrate 50 mg PO BID simvastatin 20 mg PO BEDTIME Tobacco use date assessed: 04/28/24 Fall risk assessment: No Falls in past year Last assessed Fall Risk: 04/28/24 Dental Screening Dental Screen Date: 04/28/24 Did you have a dental visit in the last 12 months?: No Did you have a dental problem in the last 6 months where you did not have access to dental care?: No Was dental information given to patient?: No HPI 3 month f/u HPI Details DM; compliant with meds [facility] Medical History Obesity Type 2 diabetes mellitus with obesity Diabetes mellitus Hypertension Surgical History History of colonoscopy History of ankle surgery History of tonsillectomy and adenoidectomy History of appendectomy History of tubal ligation Family History Father Diabetes CHF (congestive heart failure) Pneumonia Mother Myocardial infarction Maternal Grandmother No problems noted. Paternal Grandmother Breast cancer Paternal Grandfather Cancer Social History Housing: House Alcohol intake: never Patient Tobacco Use Status: Former Tobacco user Tobacco use type: Cigarette e-Cigarette/Vaping Use: Never Used Second Hand Smoke Exposure: Yes service: No Current occupational status: retired Cognitive needs: No Hearing needs: No Vision needs: Yes (glasses) Questionnaire PHQ-9 Over the last 2 weeks, how often have you been bothered by any of the following problems? 1. Little interest or pleasure in doing things: not at all 2. Feeling down, depressed, or hopeless: not at all 3. Trouble falling or staying asleep, or sleeping too much: not at all 4. Feeling tired or having little energy: not at all 5. Poor appetite or overeating: not at all 6. Feeling bad about yourself - or that you are a failure or have let yourself or your family down: not at all 7. Trouble concentrating on things, such as reading the newspaper or watching television: not at all 8. Moving or speaking so slowly that other people could have noticed. Or the opposite - being so fidgety or restless that you have been moving around a lot more than usual: not at all 9. Thoughts that you would be better off or of hurting yourself in some way: not at all Total score: 0 Depression Screening Interpretation: Negative Depression Screening Done: Yes Source: Developed by Drs. Chinmay Arguello, Flaca Burgos, Marco Valle and colleagues, with an educational ced from [employer]. Thrive Questionnaire Date Thrive assessed: 04/28/24 I am a: Patient What is your living situation today?: I have a steady place to live Within the past 12 months, did the food you bought not last and you didn't have the money to get more?: Never true Within the past 12 months, did you worry whether your food would run out before you got money to buy more?: Never true Do you have trouble paying for medicines?: No Do you have trouble getting transportation to medical appointments?: No Do you have trouble paying your heating and electricity bill?: No Do you have trouble taking care of your child, family member or friend?: No Do you have trouble with day-to-day activities such as bathing, preparing meals, shopping, managing finances, etc.?: No Are you currently unemployed and looking for a job?: No Are you interested in more education?: No Please select the resources that you would like help with: None Currently or been in a relationship where the following occur: No concerns reported THRIVE Score: 0 AUDIT C Alcohol Use Questionnaire (AUDIT-C) 1. How often do you have a drink containing alcohol?: Never Total Score: 0 LATESHA-7 AMB Questionnaire LATESHA-7 Date LATESHA - 7 assessed: 04/28/24 Feeling nervous, anxious, or on edge: 0 = Not at all Not being able to stop or control worryin = Not at all Worrying too much about different things: 0 = Not at all Trouble relaxin = Not at all Being so restless that it is hard to sit still: 0 = Not at all Becoming easily annoyed or irritable: 0 = Not at all Feeling afraid as if something awful might happen: 0 = Not at all Total LATESHA-7 score (0-4 normal; 5-9 mild; 10-14 moderate; 15-21 severe): 0 Source: Developed by Drs. Chinmay Arguello, Flaca Burgos, Marco Valle and colleagues, with an educational ced from [employer]. Review of Systems Const Denies chills, Denies headache(s) and Denies weight loss ENT Denies headache(s) Card Denies chest pain, Denies syncope, Denies irregular heart rhythm and Denies dyspnea Resp Denies chest congestion, Denies cough and Denies dyspnea GI Denies abdominal pain, Denies change in stool character, Denies nausea and Denies vomiting Musc Denies deformity and Denies joint swelling Neuro Denies syncope and Denies headache(s) Physical exam (Primary Care) Vital Signs: Last Vital Signs Temp 97.3 F 04/28/24 13:22 Pulse 85 04/28/24 13:22 BP 110/64 04/28/24 13:22 Pulse Ox 96 04/28/24 13:22 Oxygen Delivery Method Room Air 04/28/24 13:22 BMI result Body Mass Index 34.2 Tobacco/Smoking Status: Tobacco use Status Tobacco use date assessed 04/28/24 04/28/24 13:29 Patient Tobacco Use Status Former Tobacco user 04/28/24 13:29 Tobacco use type Cigarette 04/28/24 13:29 e-Cigarette/Vaping Use Never Used 04/28/24 13:29 PHQ-9: PHQ-9 Score PHQ-9: Total score 0 04/28/24 13:29 Depression Screening Interpretation: Negative Thrive Assessment: Date of Thrive Assessment Date Thrive assessed 04/28/24 04/28/24 13:29 Currently or been in a relationship where the following occur: No concerns reported Const General: cooperative, comfortable, no acute distress and alert Neck Neck: Yes no lymphadenopathy Thyroid: Thyroid normal Resp Effort & Inspection: normal respiratory effort Auscultation: clear to auscultation bilaterally Percussion: percussion normal Cardio Jugular venous distension: no JVD Palpation: normal PMI Rate: regular rate Rhythm: regular rhythm Heart sounds: S1 normal heart sound present and S2 normal heart sound present GI Inspection: Yes normal to inspection Palpation (GI): No hepatosplenomegaly present Skin General skin exam: no rashes or lesions noted Extrem General: Yes no clubbing, cyanosis or edema Results AMB Hemoglobin A1c AMB Hemoglobin A1c 7.6 % Last Edit by MARYLOU Figueroa on 04/28/24 13:33 Results Reviewed Results Reviewed: Laboratory Last Values Hgb A1c (Clinic) 7.6 % (4.0-6.0) H 04/28/24 13:20 Coding Level of Care Code Est Pt Level 3 (29194) Diagnoses Type 2 diabetes mellitus with obesity E11.69; E66.9 Assessment & Plan Assessment & Plan (1) Type 2 diabetes mellitus with obesity: Code(s): E11.69 - Type 2 diabetes mellitus with other specified complication; E66.9 - Obesity, unspecified Category: Medical Plan: stable; same rx Orders: Orders AMB Hemoglobin A1c Today E11.69 - Type 2 diabetes mellitus with other specified complication, E66.9 - Obesity, unspecified
[2024-04-28 13:22] VITALS: BP 110/64; PULSE 85; TEMP 36.3; O2SAT 96; BMI 34.2
== END 2024-04-28 13:41 | disposition home or self-care (01) ==
LOC: HO.HMCH 13:19
PROVIDERS: PCP Internal Medicine; Visit Provider Internal Medicine
DX: E11.69 Type 2 diabetes mellitus with other specified complication (principal); E66.9 Obesity, unspecified; Z68.34 Body mass index [BMI] 34.0-34.9, adult

== ENCOUNTER → 2024-04-28 13:19 | Outpatient (BNVA) | payer MEDICARE, SELFPAY | PROVIDERS: PCP Internal Medicine; Visit Provider Internal Medicine | DX: E11.69 Type 2 diabetes mellitus with other specified complication (principal); E66.9 Obesity, unspecified | CPT/HCPCS: 83036; 99212 ==

== ENCOUNTER 2024-07-31 13:41 | Outpatient (AMB) | payer MEDICARE, SELFPAY ==
--- NOTE | 2024-07-31 13:50 | A.OFFPC_ITS ---
Vital Signs 3 07/31/24 13:52 Height 5 ft Weight 178 lb 4 oz BMI 34.8 BP 120/80 Blood Pressure Location Lt brachial Position Sitting Pulse 70 Pulse Source Pulse Oximeter Temp 97.3 F Temp Source Temporal Artery Scan Pulse Oximetry (%) 98 Oxygen Delivery Method Room Air Intake Visit Reasons: Transfer Care from Dr. John 3mth f/u Intake Note: Patient is here today for LOGAN from Dr John Bight Maker Required: No Solar Energy Technician: Not Required per policy Accompanied by: Self / Same As Patient Allergies diphenhydramine [From Benadryl] Allergy (Unknown, Verified 07/31/24 14:06) redness Medication List - Last Reconciled 07/31/24 by Alexia Palmer PA-C albuterol sulfate 90 mcg/actuation (Ventolin HFA) 2 puffs inhalation Q4-6H PRN lisinopril 20 mg PO DAILY metformin 500 mg PO DAILY metoprolol succinate ER 50 mg PO BID simvastatin 20 mg PO BEDTIME Tobacco use date assessed: 07/31/24 Fall risk assessment: No Falls in past year Last assessed Fall Risk: 07/31/24 Dental Screening Dental Screen Date: 04/28/24 HPI Transfer Care from Dr. John 3mth f/u 2 HPI0 Details 78-year-old female with past medical his tory of diabetes mellitus, hypertension, COPD, hyperlipidemia last seen by Dr. John 04/2024 coming in for transfer of care. Presenting with management of Type 2 Diabetes Mellitus and Chronic Obstructive Pulmonary Disease (COPD). The patient reports blood sugars typically around 78 mg/dL, with occasional lows down to 68 mg/dL, causing symptoms such as dizziness and one episode of syncope. The patient's A1c is 7.9%, indicating poor glycemic control despite reported home glucose levels. The patient takes metformin once daily and has been advised to increase it to twice daily due to elevated A1c levels. The patient uses albuterol as needed, approximately once daily, primarily during high humidity or physical exertion. A new inhaler with a steroid component has been prescribed to improve COPD management. The patient had a myocardial infarction in 2010, with no recent chest pain reported. The patient has a possible mole or wart on her back, which is itchy and has been referred to dermatology for further evaluation. [facility] Medical History Obesity Type 2 diabetes mellitus with obesity Hypertension Surgical History History of colonoscopy History of ankle surgery History of tonsillectomy and adenoidectomy History of appendectomy History of tubal ligation Family History Father Diabetes CHF (congestive heart failure) Pneumonia Mother Myocardial infarction Maternal Grandmother No problems noted. Paternal Grandmother Breast cancer Paternal Grandfather Cancer Social History Housing: House Alcohol intake: never Patient Tobacco Use Status: Former Tobacco user Tobacco use type: Cigarette e-Cigarette/Vaping Use: Never Used Second Hand Smoke Exposure: Yes service: No Current occupational status: retired Cognitive needs: No Hearing needs: No Vision needs: Yes (glasses) Questionnaire PHQ-9 Over the last 2 weeks, how often have you been bothered by any of the following problems? 1. Little interest or pleasure in doing things: not at all 2. Feeling down, depressed, or hopeless: not at all 3. Trouble falling or staying asleep, or sleeping too much: not at all 4. Feeling tired or having little energy: not at all 5. Poor appetite or overeating: not at all 6. Feeling bad about yourself - or that you are a failure or have let yourself or your family down: not at all 7. Trouble concentrating on things, such as reading the newspaper or watching television: not at all 8. Moving or speaking so slowly that other people could have noticed. Or the opposite - being so fidgety or restless that you have been moving around a lot more than usual: not at all 9. Thoughts that you would be better off or of hurting yourself in some way: not at all Total score: 0 Depression Screening Interpretation: Negative Depression Screening Done: Yes 62620 - PHQ-9 Billing: Yes Source: Developed by Drs. Chinmay Arguello, Flaca Burgos, Marco Valle and colleagues, with an educational ced from [employer]. Thrive Questionnaire Date Thrive assessed: 07/25/24 I am a: Patient What is your living situation today?: I have a steady place to live Within the past 12 months, did the food you bought not last and you didn't have the money to get more?: Sometimes True Within the past 12 months, did you worry whether your food would run out before you got money to buy more?: Sometimes True Do you have trouble paying for medicines?: No Do you have trouble getting transportation to medical appointments?: No Do you have trouble paying your heating and electricity bill?: Yes Do you have trouble taking care of your child, family member or friend?: No Do you have trouble with day-to-day activities such as bathing, preparing meals, shopping, managing finances, etc.?: No Are you currently unemployed and looking for a job?: No Are you interested in more education?: No Please select the resources that you would like help with: None Currently or been in a relationship where the following occur: I choose not to answer THRIVE Score: 3 AUDIT C Alcohol Use Questionnaire (AUDIT-C) 1. How often do you have a drink containing alcohol?: Never 3. How often do you have six or more drinks on one occasion?: Never Total Score: 0 LATESHA-7 AMB Questionnaire LATESHA-7 Date LATESHA - 7 assessed: 04/28/24 Feeling nervous, anxious, or on edge: 0 = Not at all Not being able to stop or control worryin = Not at all Worrying too much about different things: 0 = Not at all Trouble relaxin = Not at all Being so restless that it is hard to sit still: 0 = Not at all Becoming easily annoyed or irritable: 0 = Not at all Feeling afraid as if something awful might happen: 0 = Not at all Total LATESHA-7 score (0-4 normal; 5-9 mild; 10-14 moderate; 15-21 severe): 0 Source: Developed by Drs. Chinmay Arguello, Flaca Burgos, Marco Valle and colleagues, with an educational ced from [employer]. Review of Systems Const Denies body aches, Denies chills, Denies fever(s), Denies headache(s) and Denies poor appetite Eyes Reports no additional complaints ENT Denies dysphagia, Denies dizziness, Denies headache(s) and Denies odynophagia Card Denies chest pain, Denies syncope, Denies edema, Denies irregular heart rhythm, Denies lightheadedness and Denies dyspnea Resp Denies cough and Denies dyspnea GI Denies abdominal pain, Denies constipation, Denies dysphagia, Denies diarrhea, Denies nausea, Denies odynophagia and Denies vomiting Reports no additional complaints Musc Reports no additional complaints and Denies abnormal gait Skin/Breast Reports system reviewed and no additional complaints, except as documented Neuro Denies abnormal gait, Denies dizziness, Denies syncope and Denies headache(s) Psych Reports no additional complaints Physical exam (Primary Care) Vital Signs: Last Vital Signs Temp 97.3 F 07/31/24 13:52 Pulse 70 07/31/24 13:52 BP 120/80 07/31/24 13:52 Pulse Ox 98 07/31/24 13:52 Oxygen Delivery Method Room Air 07/31/24 13:52 BMI result Body Mass Index 34.8 Tobacco/Smoking Status: Tobacco use Status Tobacco use date assessed 07/31/24 07/31/24 13:59 Patient Tobacco Use Status Former Tobacco user 07/31/24 13:59 Tobacco use type Cigarette 07/31/24 13:59 e-Cigarette/Vaping Use Never Used 07/31/24 13:59 PHQ-9: PHQ-9 Score PHQ-9: Total score 0 07/31/24 13:59 Depression Screening Interpretation: Negative Thrive Assessment: Date of Thrive Assessment Date Thrive assessed 07/25/24 07/31/24 13:59 Currently or been in a relationship where the following occur: I choose not to answer Const General: cooperative, healthy appearing, comfortable and no acute distress Orientation/consciousness: patient oriented x3 [facility] Head: Yes normocephalic Ears: hearing grossly normal bilaterally General nose exam: Normal external nose present Eyes General: appearance normal, both eyes and all related structures Conjunctivae: conjunctivae normal Neck Neck: Yes full ROM and Yes no lymphadenopathy Resp Effort & Inspection: normal respiratory effort Auscultation: clear to auscultation bilaterally, no crackles, no rales, no rhonchi and no wheezes Cardio Rate: regular rate Rhythm: regular rhythm Skin General skin exam: no rashes or lesions noted Full body images: 2 1. atypical nevi Neuro General: patient oriented x3 Gait exam (Neuro): Normal gait present Extrem General: Yes normal to inspection, Yes full ROM and No edema Psych Affect: normal affect Attitude: cooperative Insight: Good insight present (Psych) Judgement: Good judgement present (Psych) Results AMB Hemoglobin A1c 2 AMB Hemoglobin A1c 7.9 % Last Edit by MARYLOU Figueroa on 07/31/24 14:03 Results Reviewed Results Reviewed: Laboratory Last Values Hgb A1c (Clinic) 7.9 % (4.0-6.0) H 07/31/24 13:50 Coding Level of Care Code Est Pt Level 4 (79211) Diagnoses Mixed hyperlipidemia E78.2 Hyperlipidemia type: mixed hyperlipidemia Class 1 obesity due to excess calories with serious comorbidity and body mass index (BMI) of 34.0 to 34.9 in adult E66.811; E66.09; Z68.34 Obesity type: due to excess calories Obesity classification: adult class 1 (BMI 30 - 34.9) Serious obesity comorbidity presence: with serious comorbidity Body mass index: BMI 34.0-34.9 Type 2 diabetes mellitus with obesity E11.69; E66.9 Chronic obstructive pulmonary disease, unspecified COPD type J44.9 COPD type: unspecified COPD Primary hypertension I10 Hypertension type: primary hypertension Atypical nevi D22.9 Additional Codes PHQ-9 - 87093 - PHQ-9 Billing: Yes ([id number]) Assessment & Plan Assessment & Plan (1) Hyperlipidemia: Code(s): E78.5 - Hyperlipidemia, unspecified Category: Medical Qualifiers: Hyperlipidemia type: mixed hyperlipidemia Qualified Code(s): E78.2 - Mixed hyperlipidemia Plan: Avoid foods that are high in cholesterol such as red meat, fried foods, eggs and baked goods. Triglyceride goal of less than 150 and LDL goal of less than 100. Continue on simvastatin 20. Patient has not had blood work completed since 2020 ordered for updated blood work. (2) Obesity: Code(s): E66.9 - Obesity, unspecified Category: Medical Qualifiers: Obesity type: due to excess calories Obesity classification: adult class 1 (BMI 30 - 34.9) Serious obesity comorbidity presence: with serious comorbidity Body mass index: BMI 34.0-34.9 Qualified Code(s): E66.811 - Obesity, class 1; E66.09 - Other obesity due to excess calories; Z68.34 - Body mass index [BMI] 34.0-34.9, adult Plan: Healthy diet and regular exercise is encouraged. (3) Type 2 diabetes mellitus with obesity: Code(s): E11.69 - Type 2 diabetes mellitus with other specified complication; E66.9 - Obesity, unspecified Category: Medical Plan: Decrease the amount of carbohydrates such as pasta, bread, rice, and potatoes and limit the amount of sweets. Although fruits are generally healthy they should be eaten in moderation as they are still high in sugar. Hemoglobin A1c goal of less than 7%. A1c in the clinic elevated today at 7.9%. At this time she states her blood glucose monitor reports blood sugars in the 70-80 range. I did discuss with patient based on her A1c her blood sugars are most likely higher. I advised patient to bring blood glucose monitor to next visit and I sent prescription for new monitor as her old 1 is over 10 years old. I also placed a referral to nursing navigation for diabetic education today. Patient will follow up in 6 weeks and agrees to bring her monitor to the next visit. I advised if she is having symptomatic lows to reach out to the office. (4) COPD (chronic obstructive pulmonary disease): Code(s): J44.9 - Chronic obstructive pulmonary disease, unspecified Category: Medical Qualifiers: COPD type: unspecified COPD Qualified Code(s): J44.9 - Chronic obstructive pulmonary disease, unspecified Plan: COPD not well managed at this time with the use of albuterol as needed. Plan to add Symbicort to medication regimen. Advised patient to use his medication twice daily and to rinse her mouth out after using this medication. (5) Hypertension: Code(s): I10 - Essential (primary) hypertension Category: Medical Qualifiers: Hypertension type: primary hypertension Qualified Code(s): I10 - Essential (primary) hypertension Plan: Continue on current blood pressure medication. Avoid salt intake and encourage healthy diet and regular exercise. (6) Atypical nevi: Code(s): D22.9 - Melanocytic nevi, unspecified Category: Medical Plan: Patient has atypical nevi possibly skin lesion on the left shoulder. Referral was placed urgently to Dermatology for evaluation. She states this lesion will occasionally itch. Plan Patient is overdue for blood work and orders have been placed today. The patient's management plan includes increasing metformin to twice daily to address elevated A1c levels and improve glycemic control. A new blood glucose meter will be provided to ensure accurate monitoring of blood sugar levels. The patient is advised to avoid high-carbohydrate foods such as bread, pasta, and rice to help manage blood sugar levels. A follow-up appointment is scheduled in six weeks to review blood sugar readings and assess the effectiveness of the current management plan. For COPD management, a new inhaler containing a steroid has been prescribed to be used twice daily, with instructions to rinse the mouth after use to prevent oral infections. The patient is advised to use albuterol only as needed. A referral to dermatology has been made for evaluation of a possible mole or wart on the back. Blood work, including a cholesterol panel, has been ordered and should be completed within the next month. This note was constructed using voice recognition software. While every effort has been made to ensure accuracy and computer numerical control programmer, still areas may have been included sometimes these areas may affect the content or meeting of the given symptoms. Total time spent caring for the patient today was 30 minutes. This includes time spent before the visit reviewing the chart, time spent during the visit, and time spent after the visit and documentation. Patient was informed and verbally consented to the use of an ambient scribe for clinic note documentation during this visit. Orders: Orders 2 Free T4 (Free Thyroxine) Today E11.69 - Type 2 diabetes mellitus with other specified complication, E66.9 - Obesity, unspecified, Z00.00 - Encounter for general adult medical examination without abnormal findings Lipid Panel Today E11.69 - Type 2 diabetes mellitus with other specified complication, E66.9 - Obesity, unspecified, E78.00 - Pure hypercholesterolemia, unspecified Vitamin B12 and Folate Today E11.69 - Type 2 diabetes mellitus with other specified complication, E66.9 - Obesity, unspecified, Z13.21 - Encounter for screening for nutritional disorder Vitamin D 25-OH Total Today E11.69 - Type 2 diabetes mellitus with other specified complication, E66.9 - Obesity, unspecified, Z00.00 - Encounter for general adult medical examination without abnormal findings Microalbumin, Random (w Creat) Today E11.69 - Type 2 diabetes mellitus with other specified complication, E11.9 - Type 2 diabetes mellitus without complications, E66.9 - Obesity, unspecified AMB Hemoglobin A1c Today E11.69 - Type 2 diabetes mellitus with other specified complication, E66.9 - Obesity, unspecified Comprehensive Met. Panel Today E11.69 - Type 2 diabetes mellitus with other specified complication, E66.9 - Obesity, unspecified, Z00.00 - Encounter for general adult medical examination without abnormal findings Complete Blood Count Auto Diff Today E11.69 - Type 2 diabetes mellitus with other specified complication, E66.9 - Obesity, unspecified, Z00.00 - Encounter for general adult medical examination without abnormal findings TSH reflex Free T4 Today E11.69 - Type 2 diabetes mellitus with other specified complication, E66.9 - Obesity, unspecified, Z00.00 - Encounter for general adult medical examination without abnormal findings Referrals 2 Dermatology Referral D22.9 - Melanocytic nevi, unspecified Nurse Navigator Referral E11.69 - Type 2 diabetes mellitus with other specified complication, E66.9 - Obesity, unspecified Medications: New 2 lancets ([email or web address] Safety Lancet) As directed to check blood sugars BID 100 ea 0RF E11.69 - Type 2 diabetes mellitus with other specified complication, E66.9 - Obesity, unspecified blood sugar diagnostic ([employer] Ultra Test strips) As directed; check blood sugars BID 100 ea 0RF E11.69 - Type 2 diabetes mellitus with other specified complication, E66.9 - Obesity, unspecified budesonide-formoterol 80-4.5 mcg/actuation (Symbicort) 1 inh inhalation BID 10.2 grams 0RF blood-glucose meter ([employer] Ultra2 Meter) As directed; check blood sugars BID 1 ea 0RF E11.69 - Type 2 diabetes mellitus with other specified complication, E66.9 - Obesity, unspecified Changed 2 From metformin 500 mg PO DAILY 90 tabs 8RF To metformin 500 mg PO BID 90 days 180 tabs 0RF
[2024-07-31 13:52] VITALS: BP 120/80; PULSE 70; TEMP 36.3; O2SAT 98; BMI 34.8
== END 2024-07-31 14:40 | disposition home or self-care (01) ==
LOC: HO.HMCH 13:42
PROVIDERS: PCP Internal Medicine
DX: E11.69 Type 2 diabetes mellitus with other specified complication (principal); J44.9 Chronic obstructive pulmonary disease, unspecified; E66.811 Obesity, class 1; Z68.34 Body mass index [BMI] 34.0-34.9, adult; E78.2 Mixed hyperlipidemia; E66.9 Obesity, unspecified; I10 Essential (primary) hypertension; D22.9 Melanocytic nevi, unspecified

== ENCOUNTER → 2024-07-31 13:41 | Outpatient (BNVA) | payer MEDICARE, SELFPAY | PROVIDERS: PCP Internal Medicine | DX: E78.2 Mixed hyperlipidemia (principal); E11.69 Type 2 diabetes mellitus with other specified complication; E66.811 Obesity, class 1; E66.09 Other obesity due to excess calories; Z68.34 Body mass index [BMI] 34.0-34.9, adult; J44.9 Chronic obstructive pulmonary disease, unspecified; I10 Essential (primary) hypertension; D22.9 Melanocytic nevi, unspecified; Z71.3 Dietary counseling and surveillance | CPT/HCPCS: 83036; 96127; 99212 ==

== ENCOUNTER 2025-01-30 13:43 | Outpatient (AMB) | payer MEDICARE, SELFPAY ==
[2025-01-30 13:55] VITALS: PULSE 70; RESP 18; TEMP 36.2; O2SAT 96; BMI 32.9
--- NOTE | 2025-01-30 13:55 | MHC.PC.OV ---
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 Accompanied by: Self / Same As Patient Allergies diphenhydramine (From Benadryl) Allergy (Unknown, Verified 01/30/25 14:03) redness Medication List - Last Reconciled 01/30/25 by Alexia Palmer PA-C acetaminophen ER 650 mg PO .prn albuterol sulfate 90 mcg/actuation (Ventolin HFA) 2 puffs inhalation Q4-6H PRN blood sugar diagnostic ([employer] Ultra Test strips) As directed; check blood sugars BID blood-glucose meter ([employer] Ultra2 Meter) As directed; check blood sugars BID Breo Ellipta 100-25 mcg/dose (fluticasone furoate-vilanterol) 1 inh inhalation DAILY NS lancets (Polimax Delica Safety Lancet) As directed to check blood sugars BID lisinopril 20 mg PO DAILY metformin 500 mg PO BID 90 days metoprolol succinate ER 50 mg PO BID simvastatin 20 mg PO BEDTIME Tobacco use date assessed: 01/30/25 Last assessed Fall Risk: 01/30/25 Dental Screening Dental Screen Date: 01/30/25 HPI f/u DM no A1c rescheduled HPI Details 79-year-old female with past medical history of diabetes mellitus, hypertension, COPD, hyperlipidemia last seen 08/09 coming in for follow up. Presenting for a follow-up visit for chronic conditions. Regarding her diabetes, she is taking metformin 500 mg twice a day and she is compliant with her medication. Her most recent HbA1c was 7.1%, which is an improvement from her previous value of 7.9%. The patient reports a reduced appetite and eating twice a day instead of three times after an increase in her pills, which has resulted in a 10-pound weight loss. The patient has a history of hypertension and previously had a blood pressure of 200/190 in 2010. She has a blood pressure cuff at home but has been unable to use it due to batteries. [facility] Medical History Obesity Type 2 diabetes mellitus with obesity Hypertension Surgical History History of colonoscopy History of ankle surgery History of tonsillectomy and adenoidectomy History of appendectomy History of tubal ligation Family History Father Diabetes CHF (congestive heart failure) Pneumonia Mother Myocardial infarction Maternal Grandmother No problems noted. Paternal Grandmother Breast cancer Paternal Grandfather Cancer Social History Housing: House Alcohol intake: never Patient Tobacco Use Status: Former Tobacco user Tobacco use type: Cigarette e-Cigarette/Vaping Use: Never Used Second Hand Smoke Exposure: Yes service: No Current occupational status: retired Cognitive needs: No Hearing needs: No Vision needs: Yes (glasses) Questionnaire Thrive Questionnaire Date Thrive assessed: 01/30/25 I am a: Patient What is your living situation today?: I have a steady place to live Within the past 12 months, did the food you bought not last and you didn't have the money to get more?: Sometimes True Within the past 12 months, did you worry whether your food would run out before you got money to buy more?: Sometimes True Do you have trouble paying for medicines?: No Do you have trouble getting transportation to medical appointments?: No Do you have trouble paying your heating and electricity bill?: Yes Do you have trouble taking care of your child, family member or friend?: No Do you have trouble with day-to-day activities such as bathing, preparing meals, shopping, managing finances, etc.?: No Are you currently unemployed and looking for a job?: No Are you interested in more education?: No Please select the resources that you would like help with: None Currently or been in a relationship where the following occur: I choose not to answer THRIVE Score: 3 LATESHA-7 AMB Questionnaire LATESHA-7 Date LATESHA - 7 assessed: 04/28/24 Source: Developed by Drs. Chinmay Arguello, Flaca Burgos, Marco Valle and colleagues, with an educational ced from [employer]. Review of Systems Const Denies body aches, Denies chills, Denies fever(s), Denies headache(s) and Denies poor appetite Eyes Reports no additional complaints ENT Denies dizziness and Denies headache(s) Card Denies chest pain, Denies edema, Denies lightheadedness and Denies dyspnea Resp Denies cough and Denies dyspnea GI Denies abdominal pain, Denies nausea and Denies vomiting Reports no additional complaints Musc Reports no additional complaints and Denies abnormal gait Skin/Breast Reports system reviewed and no additional complaints, except as documented Neuro Denies abnormal gait, Denies dizziness and Denies headache(s) Psych Reports no additional complaints Physical exam (Primary Care) Vital Signs: Last Vital Signs Temp 97.1 F 01/30/25 13:55 Pulse 70 01/30/25 13:55 Resp 18 01/30/25 13:55 Pulse Ox 96 01/30/25 13:55 Oxygen Delivery Method Room Air 01/30/25 13:55 BMI result Body Mass Index 32.9 Tobacco/Smoking Status: Tobacco use Status Tobacco use date assessed 01/30/25 01/30/25 13:59 Patient Tobacco Use Status Former Tobacco user 01/30/25 13:59 Tobacco use type Cigarette 01/30/25 13:59 e-Cigarette/Vaping Use Never Used 01/30/25 13:59 Thrive Assessment: Date of Thrive Assessment Date Thrive assessed 01/30/25 01/30/25 13:59 Currently or been in a relationship where the following occur: I choose not to answer Const General: cooperative, healthy appearing, comfortable and no acute distress Orientation/consciousness: patient oriented x3 HENMT Head: Yes normocephalic Ears: hearing grossly normal bilaterally General nose exam: Normal external nose present Eyes General: appearance normal, both eyes and all related structures Conjunctivae: conjunctivae normal Neck Neck: Yes full ROM and Yes no lymphadenopathy Resp Effort & Inspection: normal respiratory effort Auscultation: clear to auscultation bilaterally, no crackles, no rales, no rhonchi and no wheezes Cardio Rate: regular rate Rhythm: regular rhythm Skin General skin exam: no rashes or lesions noted Neuro General: patient oriented x3 Gait exam (Neuro): Normal gait present Extrem General: Yes normal to inspection, Yes full ROM and No edema Psych Affect: normal affect Attitude: cooperative Insight: Good insight present (Psych) Judgement: Good judgement present (Psych) Coding Level of Care Code Est Pt Level 3 (19868) Diagnoses Primary hypertension I10 Hypertension type: primary hypertension Mixed hyperlipidemia E78.2 Hyperlipidemia type: mixed hyperlipidemia Type 2 diabetes mellitus with obesity E11.69; E66.9 Class 1 obesity due to excess calories with serious comorbidity and body mass index (BMI) of 34.0 to 34.9 in adult E66.811; E66.09; Z68.34 Body mass index: BMI 34.0-34.9 Obesity classification: adult class 1 (BMI 30 - 34.9) Obesity type: due to excess calories Serious obesity comorbidity presence: with serious comorbidity Chronic obstructive pulmonary disease, unspecified COPD type J44.9 COPD type: unspecified COPD Low back pain M54.50 Assessment & Plan Assessment & Plan (1) Hypertension: Code(s): I10 - Essential (primary) hypertension Category: Medical Qualifiers: Hypertension type: primary hypertension Qualified Code(s): I10 - Essential (primary) hypertension Plan: The patient's blood pressure was measured at 150/100 mmHg today. The accuracy of the reading is questioned due to pain experienced by the patient during the measurement, as well as her talking and moving. The patient will monitor her blood pressure at home for one week with her own cuff, and report the readings. No medication changes, including lisinopril, will be made at this time. A follow-up call will be made in one week to review the home readings, and if they remain high, an adjustment to her lisinopril may be considered. (2) Hyperlipidemia: Code(s): E78.5 - Hyperlipidemia, unspecified Category: Medical Qualifiers: Hyperlipidemia type: mixed hyperlipidemia Qualified Code(s): E78.2 - Mixed hyperlipidemia Plan: Avoid foods that are high in cholesterol such as red meat, fried foods, eggs and baked goods. Triglyceride goal of less than 150 and LDL goal of less than 100. Continue on Simvastatin. Reminded about blood work!! (3) Type 2 diabetes mellitus with obesity: Code(s): E11.69 - Type 2 diabetes mellitus with other specified complication; E66.9 - Obesity, unspecified Category: Medical Plan: Decrease the amount of carbohydrates such as pasta, bread, rice, and potatoes and limit the amount of sweets. Although fruits are generally healthy they should be eaten in moderation as they are still high in sugar. Hemoglobin A1c goal of less than 7%. A1c in the clinic today 7.1%. She will continue on Metformin 500mg BID at this time and consider increase if A1c does not improve or worsens. (4) Obesity: Code(s): E66.9 - Obesity, unspecified Category: Medical Qualifiers: Body mass index: BMI 34.0-34.9 Obesity classification: adult class 1 (BMI 30 - 34.9) Obesity type: due to excess calories Serious obesity comorbidity presence: with serious comorbidity Qualified Code(s): E66.811 - Obesity, class 1; E66.09 - Other obesity due to excess calories; Z68.34 - Body mass index [BMI] 34.0-34.9, adult Plan: Healthy diet and regular exercise is encouraged. Noted 10 lb intentional weight loss since last visit. (5) COPD (chronic obstructive pulmonary disease): Code(s): J44.9 - Chronic obstructive pulmonary disease, unspecified Category: Medical Qualifiers: COPD type: unspecified COPD Qualified Code(s): J44.9 - Chronic obstructive pulmonary disease, unspecified Plan: The patient reports using her albuterol inhaler about twice a week, especially in cool weather. No changes were made to her management. She has not been using the Breo inhaler she will continue on the albuterol and reach out if the COPD worsens. (6) Low back pain: Code(s): M54.50 - Low back pain, unspecified Category: Medical Plan: The patient manages her sciatica with as-needed Tylenol, primarily during the winter. Continue current management. Orders: Orders AMB Hemoglobin A1c 01/30/25 E11.69 - Type 2 diabetes mellitus with other specified complication, E66.9 - Obesity, unspecified Medications: Discontinued Breo Ellipta 100-25 mcg/dose (fluticasone furoate-vilanterol) Discontinued Reason: Patient no longer taking 1 inh inhalation DAILY 60 ea 0RF NS
== END 2025-01-30 15:08 | disposition home or self-care (01) ==
LOC: HO.HMCH 13:44
DX: E11.69 Type 2 diabetes mellitus with other specified complication (principal); J44.9 Chronic obstructive pulmonary disease, unspecified; E66.811 Obesity, class 1; Z68.34 Body mass index [BMI] 34.0-34.9, adult; I10 Essential (primary) hypertension; E78.2 Mixed hyperlipidemia; E66.09 Other obesity due to excess calories; M54.50 Low back pain, unspecified

== ENCOUNTER → 2025-01-30 13:43 | Outpatient (BNVA) | payer MEDICARE, SELFPAY | DX: I10 Essential (primary) hypertension (principal); E78.2 Mixed hyperlipidemia; E11.69 Type 2 diabetes mellitus with other specified complication; E66.9 Obesity, unspecified; E66.811 Obesity, class 1; Z68.34 Body mass index [BMI] 34.0-34.9, adult; J44.9 Chronic obstructive pulmonary disease, unspecified; M54.50 Low back pain, unspecified; Z79.899 Other long term (current) drug therapy | CPT/HCPCS: 99212 ==